=== PATIENT | male | born 1995 ===

== ENCOUNTER 2020-04-03 18:31 | Emergency (ER) | payer OTHER, SELFPAY ==
--- NOTE | 2020-04-03 18:33 | XRR_ITS ---
PROCEDURE INFORMATION: Exam: XR Chest, 2 Views Exam date and time: 04/03/2020 6:51 PM Age: 24 years old Clinical indication: Fever TECHNIQUE: Imaging protocol: XR of the chest Views: 2 views. COMPARISON: No relevant prior studies available. FINDINGS: Lungs: Unremarkable. No consolidation. Pleural space: Unremarkable. No pleural effusion. No pneumothorax. Heart/Mediastinum: Unremarkable. No cardiomegaly. Bones/joints: Unremarkable. XR/XR chest 2V* [id number] IMPRESSION: No acute findings.
[2020-04-03 18:40] VITALS: BMI 28.8
--- NOTE | 2020-04-03 18:40 | ED_ITS ---
HPI - General Adult General: Chief complaint: General Medical Stated complaint: fever/cough Time Seen by Provider: 04/03/20 18:37 Source: patient and family Mode of arrival: ambulatory Limitations: no limitations History of Present Illness: HPI narrative: Mikey is a 24-year-old male who comes in with report of fever, cough and sore throat. His cough is dry. His sore throat is mild. His cough is nonproductive. His fever has been mild in the 99 range but never greater than 100. The patient has no ill exposures. He is not a smoker. He denies any chest pain or shortness of breath. He is unaware of anything that makes his symptoms better or worse. Review of Systems General: Reports: 10 or more systems reviewed and unremarkable except in HPI and below PFSH ED PFSH: Medical History No pertinent past medical history Surgical History No pertinent past surgical history Physical Exam Const: COMMON NORMALS: no acute distress, patient oriented x3, no limitations, healthy appearing and well nourished GENERAL APPEARANCE: cooperative, well kempt and well developed HENMT: COMMON NORMALS: normocephalic, atraumatic, external ears normal, EAC's normal and Normal external nose present HEAD & SCALP: normal to inspection, normocephalic and atraumatic FACE & SINUS: normal facial exam and face symmetric NOSE: Normal external nose present and Normal nares present EXTERNAL EAR: Yes external ears normal EXTERNAL AUDITORY CANAL: EAC's normal MOUTH: Normal oral and palatal mucosa present, lip normal and tongue normal Eye: COMMON NORMALS: Equal, round and reactive pupils present and conjunctivae normal GENERAL EYE: appearance normal, both eyes and all related structures ALIGNMENT: Yes alignment normal PERIORBITAL: periorbital findings normal EYELID: eyelids normal CONJUNCTIVA: Yes conjunctivae normal SCLERA: sclerae normal PUPIL: Yes Equal, round and reactive pupils present Neck/C-Spine: COMMON NORMALS: full ROM, no lymphadenopathy, supple, no meningeal signs and no JVD GENERAL: Yes normal visual inspection and Yes trachea midline Chest: COMMONS NORMALS: normal inspection of the chest and normal palpation of entire chest wall Resp: COMMON NORMALS: normal respiratory effort, No retractions and No use of accessory muscles EFFORT & INSPECTION: Yes able to speak in complete sentences and Yes symmetric chest movement AUSCULTATION: no crackles, no rales, no rhonchi and no wheezes Cardio: COMMON NORMALS: no JVD, regular rate, regular rhythm, S1 normal heart sound present and S2 normal heart sound present RATE: regular rate RHYTHM: regular rhythm HEART SOUNDS: S1 normal heart sound present, S2 normal heart sound present, no click, no gallops, no murmurs, no rubs and abnormal split S2 GI: COMMON NORMALS: Soft to palpation and No hepatosplenomegaly present PALPATION: Yes Soft to palpation, No Tenderness to palpation present (GI), No Guarding due to palpation present (GI), No Rigid due to palpation, Yes No hepatosplenomegaly present, No Hernia present, No Palpable mass present and No P ulsatile mass present : COMMON NORMALS: Yes no CVA tenderness BLADDER/KIDNEY EXAM: Yes no CVA tenderness Back/Pelvis: COMMON NORMALS: no CVA tenderness, thoracic and lumbar spine normal to inspection, no thoracic nor lumbar tenderness and thoraco-lumbar ROM normal Extremity: COMMON NORMALS: normal to inspection, full ROM, capillary refill normal, no joint enlargement, no clubbing, cyanosis or edema and no calf tenderness Neuro: COMMON NORMALS: patient oriented x3, CN's II-XII intact bilaterally, moves all extremities, no focal motor deficits and no sensory deficits noted MENINGEAL SIGNS: Yes no meningeal signs SPEECH: speech normal Psych: COMMON NORMALS: mental status grossly normal, Normal thought process present, cooperative, normal affect, speech normal and activity/motor behavior normal APPEARANCE: Yes well kempt SPEECH: Yes normal speech THOUGHT PROCESS: Normal thought process present Skin: COMMON NORMALS: no rashes or lesions noted, turgor normal, no jaundice, no petechiae and no mottling GENERAL SKIN EXAM: no rashes or lesions noted and turgor normal Course Vital Signs: Vital signs: Vital Signs Temperature 99.4 F 04/03/20 18:53 Pulse Rate 125 H 04/03/20 18:53 Respiratory Rate 16 04/03/20 18:53 Blood Pressure 134/82 04/03/20 18:42 Pulse Oximetry 97 04/03/20 18:42 MDM - General Adult MDM Narrative: Medical decision making narrative: COVID test was run. Patient is felt to be low risk but will notify him if the cover test comes back positive. Patient is well-known to me and did not want to wait for discharge instructions. He understands he will be notified tomorrow of his results. Imaging Data^: CXR: My impression: No acute cardiopulmonary findings. Discharge Plan Discharge Patient Disposition: Home, Self-Care Clinical Impression: Cough Condition: Stable Prescriptions: No Action No Known Home Medications RF: 0 Discharge Orders: Discharge Order (Routine); Ordered 04/03/20 Ordered By: Zulema Patino Interventions: ED Discharge Assessment Last Done: 04/03/20 18:53 ED Charges Last Done: 04/03/20 18:53 Discharge Date/Time: 04/03/20 18:58 Coding Level of Care Code ED [employer] for Babak Campbell
[2020-04-03 18:42] VITALS: BP 134/82; PULSE 125; RESP 16; TEMP 37.4; O2SAT 97
[2020-04-03 18:53] VITALS: PULSE 125; RESP 16; TEMP 37.4
[2020-04-05 15:34] LABS: Coronavirus Lab Test PTC DETECTED
--- NOTE | 2020-04-05 16:20 | PC.NURSE ---
Pt called and notified of positive COVID test. Pt states he has already spoken with Dr Patino. Pt instructed to quarantine for 14 days and return to ED for concerning or worsening symptoms.
== END 2020-04-03 18:58 | disposition home or self-care (01) ==
LOC: ER 19:48
PROVIDERS: Emergency Provider Emergency Medicine
DX: R05 Cough (principal)
CPT/HCPCS: 12345; 71046; 87635; 99281; 99283

== ENCOUNTER 2021-02-02 12:10 | Outpatient (CLI) | payer OTHER, SELFPAY ==
[2021-02-03 20:32] LABS: Quest SARS-CoV-2 RNA NOT DETECTED (NOT DETECTED)
== END 2021-02-02 12:11 | disposition home or self-care (01) ==
PROVIDERS: PCP Family Medicine; Visit Provider Family Medicine
DX: Z20.822 Contact with and (suspected) exposure to COVID-19 (principal)
CPT/HCPCS: 87635

== ENCOUNTER 2021-05-09 14:00 | Outpatient (CLI) | payer OTHER, SELFPAY | END 2021-05-09 14:01 | disposition home or self-care (01) | LOC: SPT 14:03 | PROVIDERS: Visit Provider Podiatrist Foot & Ankle Surgery | DX: Z46.89 Encounter for fitting and adjustment of other specified devices (principal); S86.899D Other injury of other muscle(s) and tendon(s) at lower leg level, unspecified leg, subsequent encounter; X58.XXXD Exposure to other specified factors, subsequent encounter | CPT/HCPCS: 97760; L4397 ==

== ENCOUNTER 2021-05-17 07:08 | Outpatient (CLI) | payer OTHER, SELFPAY ==
[2021-05-17 16:12] LABS: Coronavirus Test Green County Not Detected
== END 2021-05-17 07:09 | disposition home or self-care (01) ==
PROVIDERS: Visit Provider Internal Medicine Cardiovascular Disease
DX: Z20.822 Contact with and (suspected) exposure to COVID-19 (principal)
CPT/HCPCS: 87635

== ENCOUNTER 2021-06-12 14:58 | Outpatient (CLI) | payer OTHER, SELFPAY | END 2021-06-12 14:59 | disposition home or self-care (01) | LOC: SPT 14:59 | PROVIDERS: Visit Provider Podiatrist Foot & Ankle Surgery | DX: Z46.89 Encounter for fitting and adjustment of other specified devices (principal); S86.899D Other injury of other muscle(s) and tendon(s) at lower leg level, unspecified leg, subsequent encounter; X58.XXXD Exposure to other specified factors, subsequent encounter; M76.829 Posterior tibial tendinitis, unspecified leg; M25.371 Other instability, right ankle; M19.179 Post-traumatic osteoarthritis, unspecified ankle and foot | CPT/HCPCS: L3030 ==

== ENCOUNTER → 2021-09-21 16:00 | Outpatient (BNVA) | payer OTHER, SELFPAY | PROVIDERS: Visit Provider Internal Medicine Cardiovascular Disease | DX: Z01.812 Encounter for preprocedural laboratory examination (principal); Z20.822 Contact with and (suspected) exposure to COVID-19 | CPT/HCPCS: 87635 ==

== ENCOUNTER 2022-08-05 15:08 | Outpatient (CLI) | payer OTHER, SELFPAY ==
--- NOTE | 2022-08-05 16:12 | XRR_ITS ---
PROCEDURE INFORMATION: Exam: XR Right Foot Exam date and time: 08/05/2022 4:14 PM Age: 27 years old Clinical indication: Right; Prior surgery; Patient HX: History--rt foot pain since injury in 2017; Additional info: Traumatic arthropathy right ankle and foot TECHNIQUE: Imaging protocol: Radiologic exam of the Right foot. Views: 3 or more views. 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 Soft tissues: Normal. 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
== END 2022-08-05 15:09 | disposition home or self-care (01) ==
PROVIDERS: PCP Family Medicine; Visit Provider Podiatrist Foot & Ankle Surgery
DX: M12.571 Traumatic arthropathy, right ankle and foot (principal)
CPT/HCPCS: 73630

== ENCOUNTER → 2023-03-20 08:12 | Outpatient (BNVA) | payer SELFPAY | PROVIDERS: PCP Family Medicine; Visit Provider Podiatrist Foot & Ankle Surgery | DX: M10.9 Gout, unspecified (principal); M21.612 Bunion of left foot | CPT/HCPCS: 73630 ==